=== PATIENT | female | born 1965 | race Asian ===

== ENCOUNTER 2024-12-19 15:44 | Emergency (ER) | payer SELFPAY ==
[~2024-12-19] VITALS: Ht 160 cm; Wt 105.0 kg
[2024-12-19 15:52] VITALS: O2SAT 98
[2024-12-19] MEDS ORDERED: ACET-2708 MT (17:19)
[2024-12-19] MEDS: KETOROLAC 30MG/ML VIAL IM ONE (17:36)
[2024-12-19 17:42] VITALS: BP 169/86; PULSE 48; RESP 16; TEMP 36.7; O2SAT 100
== END 2024-12-19 17:43 | disposition home or self-care (01) ==
LOC: ER 15:44
DX: M79.602 Pain in left arm (principal); I10 Essential (primary) hypertension
CPT/HCPCS: 73030; 73060; 73090; 73110; 29105; 96372; 99284; J1885; Z7610; A4565